=== PATIENT | female | born 1990 | race Caucasian/White ===

== ENCOUNTER 2016-09-15 06:54 | Inpatient (IN) | payer MEDICAID ==
[2016-09-15] MEDS ORDERED: cefOXitin IV 2 gm in Dextrose 2 GM/50 ML BAG IVPB ONE ×2 (07:08→07:16)
[2016-09-15] MEDS ORDERED: Sodium Citrate/Citric Acid 15 ml Sol ONE (07:08)
[2016-09-15] MEDS ORDERED: Oxytocin 20 units in LR 2,000 ML IV ONE (07:09)
[2016-09-15] MEDS ORDERED: Lactated Ringer's 1,000 ML IV SCH (07:15)
[2016-09-15 07:16] VITALS: BMI 29.8
[2016-09-15] MEDS ORDERED: Sodium Citrate/Citric Acid 15 ml Sol PO ONE (07:16)
[2016-09-15 07:43] LABS: HEMOGLOBIN 9.6 g/dL (11.0-16.0); MEAN CELL VOLUME 73.6 fL (81.0-99.0); MEAN CORPUSCULAR HEMOGLOBIN 23.6 pg (27.0-31.0); MEAN CORPUSCULAR HGB CONC 32.1 g/dL (33.0-37.0); MEAN PLATELET VOLUME 10.1 fL (7.2-11.7); RBC 4.06 Mil/uL (3.80-5.20); RED CELL DISTRIBUTION WIDTH 15.4 % (11.5-14.5); WHITE BLOOD COUNT 7.5 K/uL (4.8-10.8)
[2016-09-15 07:58] LABS: SPERM URINE RARE /hpf; SQUAMOUS EPITHIAL 11 /hpf (0-5); URINE BILIRUBIN NEGATIVE (NEGATIVE); URINE BLOOD NEGATIVE (NEGATIVE); URINE CLARITY Hazy (Clear); URINE COLOR Yellow (YELLOW); URINE GLUCOSE (UA) NORMAL (Normal); URINE LEUKOCYTE ESTERASE NEG Leu/uL (Negative); URINE NITRATE NEGATIVE (NEGATIVE); URINE PROTEIN NEGATIVE (NEGATIVE); URINE UROBILINOGEN NORMAL mg/dL (0.2-1.0)
[2016-09-15 07:59] LABS: GFR AFRICAN-AMERICAN > 60; GFR NON-AFRICAN AMERICAN > 60; URINE BACTERIA FEW (<OCC)
[2016-09-15 08:00] LABS: BLOOD UREA NITROGEN 11 mg/dL (7-17); CALCIUM 9.1 mg/dl (8.6-10.4)
[2016-09-15] MEDS ORDERED: Morphine 1 mg/ml preservative-free Inj(Duramorph) ONE (08:08)
[2016-09-15] MEDS ORDERED: Propofol 10 mg/ml Inj (20 ML) ONE ×2 (08:28→09:07)
[2016-09-15] MEDS ORDERED: Midazolam 2 MG/2 ML VIAL ONE (08:28)
[2016-09-15] MEDS ORDERED: DiphenhydrAMINE 50 mg/ml Inj IVP PRN (09:18)
[2016-09-15] MEDS ORDERED: ePHEDrine 50 mg/ml Inj ONE (09:24)
[2016-09-15] MEDS ORDERED: Phenylephrine 10 mg/ml Inj ONE (09:24)
[2016-09-15] MEDS ORDERED: DiphenhydrAMINE 50 mg/ml Inj ONE (11:13)
[2016-09-15] MEDS: Simethicone 80 mg Chewtab PO SCH ×4 (15:31→23:54)
[2016-09-15] MEDS: Prenatal Multivit/Folic Acid/Iron Tab PO SCH (15:33)
[2016-09-15] MEDS: Oxycodone/Acetaminophen 5/325 mg Tab PO PRN (22:10)
[2016-09-16] MEDS: Oxycodone/Acetaminophen 5/325 mg Tab PO PRN ×3 (05:47→16:32)
[2016-09-16] MEDS: Levothyroxine 50 MCG TAB PO SCH (07:46)
[2016-09-16 09:06] LABS: HEMOGLOBIN 8.7 g/dL (11.0-16.0); MEAN CELL VOLUME 73.9 fL (81.0-99.0); MEAN CORPUSCULAR HEMOGLOBIN 23.3 pg (27.0-31.0); MEAN CORPUSCULAR HGB CONC 31.5 g/dL (33.0-37.0); RBC 3.73 Mil/uL (3.80-5.20); RED CELL DISTRIBUTION WIDTH 15.4 % (11.5-14.5); WHITE BLOOD COUNT 10.8 K/uL (4.8-10.8)
[2016-09-16] MEDS: Simethicone 80 mg Chewtab PO SCH ×4 (09:31→22:23)
[2016-09-16] MEDS: Prenatal Multivit/Folic Acid/Iron Tab PO SCH (09:31)
--- NOTE | 2016-09-16 10:18 | OBDS ---
DELIVERY PERSONNEL Delivery Doctor: Rigo Aaron MD Scrub Nurse: Luz Estrella Linen Checker: Elaina Narayan RN Anesthesiologist: Jsoe Moreira MATERNAL INFORMATION Delivery Anesthesia: Spinal Estimated Blood Loss (ml): 600 Placenta Cultured: No Maternal Complications: None Provider Comments: uncomplicated Repeat section with delivery of a viable male infant with BW of 7Ibs 5oz scores of 9 and 9.Baby delivered in cephalic presentation. LABOR SUMMARY EDC: 09/22/2016 00:00 No. Babies in Womb: 1 LABOR INFORMATION Group B Beta Strep: Negative (Annotations: 06/03/2016 -----08/24/2016) STAGES OF LABOR Stage 3 hrs: 0 Stage 3 min: 1 BABY A INFORMATION Delivery Date/Time: 09/15/2016 08:33 Method of Delivery: Born in Route : No : N/A Forceps: N/A Vacuum Extraction: N/A Shoulder Dystocia : No SHOULDER DYSTOCIA BABY A Delivery Date/Time: 09/15/2016 08:33 PRESENTATION/POSITION BABY A Presentation: Cephalic Cephalic Presentation: Vertex Vertex Position: Right Occipital Posterior Breech Presentation: N/A PLACENTA INFORMATION BABY A Placenta Delivery Time : 09/15/2016 08:34 Placenta Method of Delivery: Expressed Placenta Status: Delivered SCORES BABY A Heart Rate 1 min: >100 bpm Resp Effort 1 min: Good Cry Reflex Irritability 1 min: Cough or Sneeze or Pulls Away Muscle Tone 1 min: Active Motion Color 1 min: Body [place], Extremities Blue Resuscitation Effort 1 min: Tactile Stimulation SCORE 1 MIN: 9 Heart Rate 5 min: >100 bpm Resp Effort 5 min: Good Cry Reflex Irritability 5 min: Cough or Sneeze or Pulls Away Muscle Tone 5 min: Active Motion Color 5 min: Body [place], Extremities Blue Resuscitation Effort 5 min: N/A SCORE 5 MIN: 9 INFORMATION BABY A Gestational Age at Delivery: 39.0 Gestational Status: Term Outcome : Liveborn Condition : Stable Infant Sex: Male IDENTIFICATION/MEDS BABY A ID Band Number: [id number] Sensor Number: [id number] WEIGHT/LENGTH BABY A Birthweight (gms): 3330 Weight (lb): 7 Weight (oz): 5 Infant Length Inches: 19.25 Length cms: 48.9 CORD INFORMATION BABY A No. Cord Vessels: 3 Nuchal Cord : N/A Nuchal Cord Other: n/a True Knot: n/a Cord Blood Taken: Yes Infant Suction: Mouth; Nose
--- NOTE | 2016-09-16 10:21 | OBPPN ---
Datetime: 09/16/2016 10:17 PP Pain Prov: Within normal limits PP Nausea Prov: Denies PP Flatus Prov: Yes PP Breasts Prov: Normal PP Heart Prov: Normal PP Lungs Prov: Normal PP Abdomen/Uterus Prov: Normal PP Lochia Prov: Normal PP Vulva/Perineum Prov: Normal PP CVA Tenderness Prov: Normal PP Extremities Prov: Normal PP C/S Incision Prov: Normal PP Progress Prov: Normal PP Comments Phys Exam Prov: Abd: Soft, NT Bs - present UT- Firm Incision: Clean and dry PP Impression Prov: Normal progression PP Progress Note Prov: S/P Repeat Section, POD#1 Clinically Stable. Plan: COntinue care.
--- NOTE | 2016-09-16 17:27 | PCM.SURG1 ---
Surgeon's Initial Post Op Note - Surgeon's Notes Surgeon: Dr Aaron Yeast Culture Operator: Echo Hernandez( Resident) Type of Anesthesia: Spinal Anesthesia Administered By: Dr Moreira Pre-Operative Diagnosis: IUP at 39wks with a Previous section. Operative Findings: Live Male with BW of 7Ibs 5oz and score of 9 and 9, delivered in the left occipito anterior position, Clear amniotic fluid and fundal placenta. Normal looking uterus with bilateral ovaries and fallopian tubes. IVF Fluid intake- 1700mls. EBL- 600mls. Urine Output- 300mls Post-Operative Diagnosis: Same as Preop Diagnosis Operation Performed: Repeat Section Specimen/Specimens Removed: None Estimated Blood Loss: EBL {In ML}: 600 Post-Op Condition: Good Date of Surgery/Procedure: 09/15/16 Time of Surgery/Procedure: 09:00
[2016-09-16] MEDS ORDERED: Aluminum Hydroxide/Magnesium Hydroxide Susp (30 mL) PO STA (18:24)
[2016-09-16] MEDS: cefOXitin IV 2 gm in Dextrose 2 GM/50 ML BAG IVPB SCH (18:50)
[2016-09-17] MEDS: cefOXitin IV 2 gm in Dextrose 2 GM/50 ML BAG IVPB SCH ×2 (02:51→10:05)
[2016-09-17] MEDS: Levothyroxine 50 MCG TAB PO SCH (06:04)
[2016-09-17] MEDS: Simethicone 80 mg Chewtab PO SCH ×4 (10:06→22:51)
[2016-09-17] MEDS: Prenatal Multivit/Folic Acid/Iron Tab PO SCH (10:07)
[2016-09-17 10:16] VITALS: RESP 18; TEMP 98; O2SAT 98
--- NOTE | 2016-09-17 12:51 | OBHP ---
Datetime: 09/15/2016 06:43 IP Adm Impression: Term, intrauterine IP Adm Impression Other: hx of previous csection IP Admit Plan: Admit to unit; Initiate Section protocol Admit Comment, IP Provider: chief complaint- at 39 wga, previous csection HPI 26 y/o at 39 wga here for scheduled csection.Patient denies vaginal bleeding or loss of f luid course- care with dr connor and then with dr hahn PMH hypothyroidisM PSH , D_C OBGYH HX Social hx denies tobacco,alcohol or ilicit drug use Exam see exam section A/P 26 y/o at 39 wga here for scheduled csection -admit -see orders dr hahn notified by the nursing staff Pelvic Type - PN: Adequate Extremities - PN: Normal Abdomen - PN: Normal Back - PN: Normal Lungs - PN: Normal Heart - PN: Normal Neurologic - PN: Normal General - PN: Normal Gestation - Est Wks by US: 39.0 IP Hx Assessment: The History has been Reviewed and is Current EGA AdmitDate IP: 39.0 Vital Signs Provider: Reviewed; Within Normal Limits IP Chief Complaint: Scheduled Section FHR Category Provider Fetus A: Category I Genitourinary Exam: Normal DTRs - PN: Normal
--- NOTE | 2016-09-17 12:54 | OBADHP ---
Datetime: 09/15/2016 06:43 IP Adm Impression Other: hx of previous csection Admit Comment, IP Provider: chief complaint- at 39 wga, previous csection HPI 26 y/o at 39 wga here for scheduled csection.Patient denies vaginal bleeding or loss of f luid course- care with dr connor and then with dr hahn [facility] hypothyroidisM PSH , D_C OBGYH HX Social hx denies tobacco,alcohol or ilicit drug use Exam see exam section A/P 26 y/o at 39 wga here for scheduled csection -admit -see orders dr hahn notified by the nursing staff Pelvic Type - PN: Adequate Extremities - PN: Normal Abdomen - PN: Normal Back - PN: Normal Lungs - PN: Normal Heart - PN: Normal Neurologic - PN: Normal General - PN: Normal Gestation - Est Wks by US: 39.0 IP Hx Assessment: The History has been Reviewed and is Current Vital Signs Provider: Reviewed; Within Normal Limits IP Chief Complaint: Scheduled Section FHR Category Provider Fetus A: Category I Genitourinary Exam: Normal DTRs - PN: Normal EGA AdmitDate IP: 39.0 IP Adm Impression: Term, intrauterine IP Admit Plan: Admit to unit; Initiate Section protocol
--- NOTE | 2016-09-17 18:09 | OP ---
PREOPERATIVE DIAGNOSIS: Intrauterine at 39 weeks, with a previous section. POSTOPERATIVE DIAGNOSIS: Intrauterine at 39 weeks, with a previous section. PROCEDURE: A repeat low transverse section preformed on 09/15/2016. SURGEON: Raul Aaron MD ASSISTANTS: Echo Hernandez( Family Practice Resident ) Assistance in this procedure was needed for exposure of tissues and help in the delivery of the baby. The assistants remained in the procedure throughout its entire length. TYPE OF ANESTHESIA: Spinal. ANESTHESIOLOGIST: Dr. Moreira. FINDINGS: A live male with weight of 7 pounds 5 ounces and scores of 9 and 9 in the first and fifth minute respectively. Baby delivered in the left occiput anterior position with clear amniotic fluid and fundal placenta. The uterus appeared normal and both ovaries and fallopian tubes appeared normal. IV FLUID INTAKE: About 1700 mL ESTIMATED BLOOD LOSS: 600 mL URINE OUTPUT: 300 mL COMPLICATIONS: There were no complications. DESCRIPTION OF PROCEDURE: After obtaining informed consent, the patient was sent to the OR with IV running and Rivera catheter in place. The patient was sat on the OR table and after adequate spinal anesthesia was put in the supine position with a left lateral tilt. The patient was then prepped and draped in the sterile fashion. A Pfannenstiel skin incision was made using a scalpel through the old Pfannenstiel incision scar about 2.5 cm from the pubic symphysis. This incision was carried through the subcutaneous tissues so the rectus fascia was identified. A transverse incision was made in the rectus fascia and the incision was extended to both sides by means of sharp dissection and blunt dissection. The rectus fascia was then lifted off the underlying rectus muscles both superiorly and inferiorly by means of a sharp dissection using a Lee scissors and blunt dissection. The rectus muscles was in the midline to expose the peritoneum, which was tented between 2 Kaitlyn clamps and sharply entered with good visualization of the bladder. Once abdominal cavity was entered, the vesicouterine pouch of peritoneum was identified. This was incised in a transverse fashion and retracted inferiorly to expose the lower uterine segment. A lower transverse incision was made in the lower uterine segment using a scalpel and this was extended to both thighs in a blunt fashion. The amniotic membrane, which was visible at this point was grafted using a pickup forceps and the baby which was in cephalic presentation was delivered. The mouth and nostrils were bulb suctioned and the three-vessel cord was clamped and cut and the baby given to the database reporting consultant. After obtaining umbilical cord blood for analysis, placenta was manually removed. The uterus was then brought out of the abdominal cavity and the uterine cavity cleaned of all debris using dry laparotomy pad. The uterine incision was then closed in 2 layers using Vicryl #0. The first layer in running lock fashion and the second layer in running fashion and imbricating the first layer. This was performed until hemostasis was achieved. Irrigation of the pelvis was conducted at this point to wash off all additional blood clots. Once hemostasis was noted, the uterus was returned into the abdominal cavity and attention was turned to the anterior abdominal wall which was closed in layers. After removing all instruments and laparotomy pads, the peritoneum and rectus fascia was reapproximated using Vicryl #2-0. The rectus fascia was brought together using Vicryl #0. The subcutaneous tissue was approximated with #2-0 plain catgut. The skin was closed in the subcuticular fashion using #4-0 Vicryl. All of counts of instrument, laparotomy pads and needles used were correct x3 and the patient was sent to the recovery room awake and in stable condition. Raul Aaron MD [place]
[2016-09-17] MEDS: Oxycodone/Acetaminophen 5/325 mg Tab PO PRN (20:45)
--- NOTE | 2016-09-18 01:32 | OBPPN ---
Datetime: 09/18/2016 01:31 PP Pain Prov: Within normal limits PP Nausea Prov: Denies PP Flatus Prov: Yes PP Breasts Prov: Normal PP Heart Prov: Normal PP Lungs Prov: Normal PP Abdomen/Uterus Prov: Normal PP Lochia Prov: Normal PP Vulva/Perineum Prov: Normal PP CVA Tenderness Prov: Normal PP Extremities Prov: Normal PP Comments Phys Exam Prov: Abd: Soft, Nt, BS- present UT- Firm Incision: Clean and dry Vital Signs Provider PP: Reviewed Datetime: 09/17/2016 09:28 PP C/S Incision Prov: Normal PP Progress Prov: Normal PP Impression Prov: Normal progression PP Progress Note Prov: S/P Repeat Section, POD #2 Clinically Stable. Plan: Continue care.
--- NOTE | 2016-09-18 01:36 | OBDCSUM ---
Datetime: 09/18/2016 01:33 Discharged to, Provider: Home Follow up at, Provider: Dr Aaron Disch Instr Activity: Normal activity Disch Instr Diet: Regular Discharge Instructions, Provider: Routine instructions given Discharge Diagnosis, Provider: Term Delivered Discharge Time: 09/18/2016 01:33 Follow up in weeks, Provider: 2 weeks Disch Referrals: None Contraception discussed, Prov: Yes Discharge Comment, Provider: Uncomplicated Repeat Section, Clinically Stable Discharge Diagnosis Prov Other: Uncomplicated Repeat Section, Clinically Stable
[2016-09-18] MEDS: Levothyroxine 50 MCG TAB PO SCH (06:32)
[2016-09-18] MEDS: Prenatal Multivit/Folic Acid/Iron Tab PO SCH (09:35)
[2016-09-18] MEDS: Oxycodone/Acetaminophen 5/325 mg Tab PO PRN (09:35)
[2016-09-18] MEDS: Simethicone 80 mg Chewtab PO SCH (09:35)
[2016-09-18 12:22] VITALS: PULSE 79
[2016-09-18 12:54] VITALS: BP 98/65
== END 2016-09-18 13:34 | disposition home or self-care (01) | DRG 371 ==
LOC: C.EROB 06:54 → UNDOADMIN 07:02 → C.4D 07:02 → C.4M 12:10
PROVIDERS: ADMIT Obstetrics & Gynecology; ATTEND Obstetrics & Gynecology
PROC: 10D00Z1 Extraction of Products of Conception, Low, Open Approach (ICD-10-PCS; principal; 2016-09-15)
DX: O34.211 Maternal care for low transverse scar from previous cesarean delivery (principal); O99.284 Endocrine, nutritional and metabolic diseases complicating childbirth; E03.9 Hypothyroidism, unspecified; Z3A.39 39 weeks gestation of pregnancy; Z37.0 Single live birth